=== PATIENT | female | born 1970 | race African-American/Black ===

== ENCOUNTER 2018-12-08 11:23 | Emergency (ER) | payer MEDICAID ==
[~2018-12-08] VITALS: Ht 167.6 cm; Wt 54.0 kg
[2018-12-08 11:41] VITALS: BP 115/74
== END 2018-12-08 12:45 | disposition home or self-care (01) ==
LOC: ER 11:45
DX: H01.005 Unspecified blepharitis left lower eyelid (principal); I51.9 Heart disease, unspecified
CPT/HCPCS: 81025; 99282

== ENCOUNTER 2020-06-05 06:13 | Inpatient (IN) | payer MEDICAID ==
[~2020-06-05] VITALS: Ht 170.2 cm; Wt 56.7 kg
[2020-06-05] MEDS ORDERED: SODIUM CHLORIDE 0.9% 1,000 ML IV ONE (06:30)
[2020-06-05 06:40] LABS: BASOPHILS % 0.6 % (0.0-2.0); EOSINOPHILS % 1.2 % (0.0-5.0); HEMATOCRIT. 41.2 % (36.0-48.0); HEMOGLOBIN. 13.3 g/dL (12.0-16.0); MEAN CORPUSCULAR HEMOGLOBIN 29.8 pg (28.0-32.0); MEAN CORPUSCULAR VOLUME 92.5 fL (81.0-99.0); MEAN PLATELET VOLUME 10.8 fl (7.4-10.4); MONOCYTES % 8.7 % (2.0-8.0); NEUTROPHILS % 51.5 % (40.0-76.0); PLATELET 131 x1000/uL (130-400); RED BLOOD CELL COUNT 4.45 mill/uL (4.2-5.4); RED CELL DISTRIBUTION WIDTH 13.7 % (11.6-14.6)
[2020-06-05 06:52] LABS: CHLORIDE 110 mEq/L (98-107)
[2020-06-05 06:56] LABS: *AMPHETAMINES SCREEN URINE NEGATIVE (NEGATIVE); *BARBITURATES SCREEN URINE NEGATIVE (NEGATIVE); *BENZODIAZEPINES SCREEN URINE NEGATIVE (NEGATIVE); *COCAINE SCREEN URINE NEGATIVE (NEGATIVE); METHADONE URINE SCREEN NEGATIVE (NEGATIVE); OPIATES URINE SCREEN NEGATIVE (NEGATIVE)
[2020-06-05 06:57] LABS: ETHANOL BLOOD < 10 mg/dL
[2020-06-05 06:57] LABS: CANNABINOID URINE SCREEN NEGATIVE (NEGATIVE); PHENCYCLIDINE URINE SCREEN NEGATIVE (NEGATIVE)
[2020-06-05 07:02] LABS: T4 FREE 0.92 ng/dL (0.76-1.46)
[2020-06-05 07:09] LABS: HCG SCREEN NEGATIVE
[2020-06-05 08:05] VITALS: BP 115/76
[2020-06-05 08:53] VITALS: BP 115/76
[2020-06-05] MEDS ORDERED: ACETAMINOPHEN 325MG TABLET PO PRN (09:15)
[2020-06-05] MEDS ORDERED: CLONIDINE 0.1MG TABLET PO PRN (09:15)
[2020-06-05] MEDS ORDERED: IPRATROPIUM/ALBUTEROL 0.5-3(2.5)MG/3ML NEB HHN PRN (09:15)
[2020-06-05] MEDS ORDERED: MORPHINE SULFATE 2 MG/ML CPJ (NOT FOR IM USE) IV PRN (09:15)
[2020-06-05] MEDS ORDERED: ONDANSETRON HCL 4MG/2ML INJ IV PRN (09:15)
[2020-06-05] MEDS ORDERED: DIPHENHYDRAMINE 50MG/ML VIAL IV PRN (09:15)
[2020-06-05] MEDS: ENOXAPARIN 40MG/0.4ML SYR SUBCUT SCH (10:14)
[2020-06-05] MEDS: SODIUM CHLORIDE 0.9% 1,000 ML IV SCH (10:14)
[2020-06-05 12:22] VITALS: BP 116/79
[2020-06-05 16:20] VITALS: BP 100/70
[2020-06-05 17:58] LABS: CREATINE KINASE 133 IU/L (26-192)
[2020-06-05 17:59] LABS: CREATINE KINASE MB FRACTION < 1.0 ng/mL (0.5-3.6)
[2020-06-05 20:00] VITALS: BP 107/71
[2020-06-05] MEDS: METOPROLOL TARTRATE 25MG TABLET PO SCH (21:18)
[2020-06-06] VITALS: BP 112/69
[2020-06-06 01:22] LABS: CREATINE KINASE 121 IU/L (26-192)
[2020-06-06 01:23] LABS: CREATINE KINASE MB FRACTION < 1.0 ng/mL (0.5-3.6)
[2020-06-06] MEDS: SODIUM CHLORIDE 0.9% 1,000 ML IV SCH ×2 (02:51→12:43)
[2020-06-06 04:00] VITALS: BP 96/59
[2020-06-06 05:54] LABS: HEMOGLOBIN. 12.1 g/dL (12.0-16.0); MEAN CORPUSCULAR HEMOGLOBIN 30.5 pg (28.0-32.0); MEAN CORPUSCULAR VOLUME 92.9 fL (81.0-99.0); RED BLOOD CELL COUNT 3.98 mill/uL (4.2-5.4); RED CELL DISTRIBUTION WIDTH 13.8 % (11.6-14.6)
[2020-06-06 06:01] LABS: CHLORIDE 111 mEq/L (98-107)
[2020-06-06 06:23] LABS: LDL CHOLESTEROL 80 mg/dL (5-100)
[2020-06-06 06:24] LABS: HDL CHOLESTEROL 63 mg/dL (40-59)
[2020-06-06 08:00] VITALS: BP 121/73
[2020-06-06] MEDS: ENOXAPARIN 40MG/0.4ML SYR SUBCUT SCH (08:20)
[2020-06-06] MEDS: METOPROLOL TARTRATE 25MG TABLET PO SCH (08:20)
[2020-06-06 09:05] LABS: PLATELET ESTIMATE NORMAL
[2020-06-06 12:00] VITALS: BP 98/59
[2020-06-06] MEDS ORDERED: METO25TA6 MT (13:02)
[2020-06-06 13:25] VITALS: BP 98/59
== END 2020-06-06 14:35 | disposition home or self-care (01) | DRG 422 ==
LOC: ER 06:13 → 6WST 06:49 → EDBEDREQTM 06:50 → EDBEDREQ 06:50 → ENRESERV 07:20
PROVIDERS: ADMIT Internal Medicine; ATTEND Internal Medicine
DX: E86.0 Dehydration (principal); R00.2 Palpitations; F10.939 Alcohol use, unspecified with withdrawal, unspecified
CPT/HCPCS: 36415; 71045; 80053; 80061; 80305; 80320; 82550; 82553; 83735; 83880; 84439; 84443; 84484; 84703; 85025; 93005; 93306; 93970; 99285; J1650; J7030; G0480